=== PATIENT | female | born 1930 | race Caucasian/White ===

== ENCOUNTER 2018-03-21 13:01 | Emergency (ER) | payer MEDICARE | END 2018-03-21 17:42 | disposition home or self-care (01) | LOC: ERS 13:01 | DX: N88.2 Stricture and stenosis of cervix uteri (principal); G89.29 Other chronic pain; D69.6 Thrombocytopenia, unspecified; E11.9 Type 2 diabetes mellitus without complications; I10 Essential (primary) hypertension; Z79.899 Other long term (current) drug therapy; Z86.73 Personal history of transient ischemic attack (TIA), and cerebral infarction without residual deficits | CPT/HCPCS: 99284 ==